=== PATIENT | female | born 1970 | race Caucasian/White ===

== ENCOUNTER 2019-12-03 17:31 | Emergency (ER) | payer OTHER, SELFPAY ==
[2013-01-11 21:01] VITALS: BMI 29.5
[2019-12-03 17:31] VITALS: BP 139/85; PULSE 84; RESP 26; TEMP 36.6; O2SAT 97; BMI 29.5
--- NOTE | 2019-12-03 18:29 | ED.DCSUM_ITS ---
History of Present Illness Chief Complaint: Shortness of Breath Informant: Patient Narrative: 49-year-old female presenting with chest pain and shortness of breath. She states she started to feel unwell last . 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 She states she is tested weekly. After she had symptoms she was told to get tested at a drive-through [facility]. She did do this and resulted positive on Saturday. She states that her initial symptoms were headache which progressed myalgias. She states she has had low-grade fevers of 101 at home. The started 3 days ago. Patient states she has a very painful cough but is not having pain otherwise. She does feel subjectively short of breath. She states he can only walk a few feet. She denies any medical problems. Past Medical History - Allergies and Home Meds Allergies/Adverse Reactions: Allergies No Known Allergies Allergy (Verified 12/03/19 17:33) Primary Care Physician: NOT,DEFINED [NON-STAFF] - Past Medical History: None Surgical History: noncontributory Lives: Spouse/ Significant Other Smoking Status: Never smoker Alcohol: None Drugs: None Review of Systems General: Reports: Chills, Fever, Malaise Eyes: Denies: Visual changes - bilaterally, Diplopia ENT: Reports: Rhinorrhea Cardiovascular: Reports: Chest pain, Heart racing Respiratory: Reports: Dyspnea, Cough, Dyspnea on exertion Gastrointestinal: Denies: Abdominal pain, Nausea Genitourinary: Denies: Dysuria, Hematuria Musculoskeletal: Reports: Myalgias. Denies: Arthralgias, Swelling Skin: Denies: Rash, Abscess Neurological: Reports: Headache. Denies: Weakness, Parasthesia Physical Exam Vital Signs/Narrative: Vital Signs Temp Pulse Resp BP Pulse Ox 12/03/19 17:31 97.9 F 84 26 H 139/85 H 97 Inital Vital Signs reviewed: Yes General: Well nourished, No Acute Distress Head: Normocephalic, Atraumatic Eyes: Perrl ENT: Nasal congestion Neck: Supple, Nontender Cardiovascular: Regular rate, Regular rhythm Respiratory: No distress, - - Basilar crackles. Negative for: Wheezing Extremities: Nontender, No edema Skin: Normal color, No rash. Negative for: Cyanosis, Diaphoresis Neurological: Alert, Oriented x3, Right side facial droop Psychological: Tearful, - - anxious Diagnostic/Tx/Re-eval Clinical Impression(s) from Imaging Studies Chest X-Ray 12/03/19 18:53 IMPRESSION: Findings suspicious for mild Covid 19 pneumonia in the lower lobes CT would be useful for further evaluation if indicated clinically Electronically Signed: Conor Galarza MD at 19:07 EDT , Service support , Laboratory Data 12/03/19 12/03/19 12/03/19 18:45 18:45 18:45 WBC 2.8 L RBC 4.19 L Hgb 12.8 Hct 38.9 MCV 92.8 MCH 30.5 MCHC 32.9 RDW Std Deviation 41.9 RDW Coeff of Mary Ann 12.4 Plt Count 172 MPV 10.5 Immature Gran % (Auto) 0.700 Neut % (Auto) 54.7 Lymph % (Auto) 36.4 Mayes % (Auto) 7.8 Eos % (Auto) 0.0 Baso % (Auto) 0.4 Absolute Neuts (auto) 1.6 L Absolute Lymphs (auto) 1.03 Nucleated RBC % 0 D-Dimer Quant (PE/DVT) 0.43 Sodium 140 Potassium 3.3 L Chloride 104 Carbon Dioxide 29.0 Anion Gap 7 BUN 7 Creatinine 0.57 Estim Creat Clear Calc 123.40 Est GFR (MDRD) Af Amer 143 Est GFR (MDRD) Non-Af 118 BUN/Creatinine Ratio 12.2 Glucose 90 Lactic Acid Calcium 8.9 Total Bilirubin 0.40 AST 61 H ALT 84 H Alkaline Phosphatase 122 H Troponin I < 0.015 Total Protein 7.6 Albumin 3.5 Globulin 4.1 Albumin/Globulin Ratio 0.9 12/03/19 18:45 WBC RBC Hgb Hct MCV MCH MCHC RDW Std Deviation RDW Coeff of Mary Ann Plt Count MPV Immature Gran % (Auto) Neut % (Auto) Lymph % (Auto) Mayes % (Auto) Eos % (Auto) Baso % (Auto) Absolute Neuts (auto) Absolute Lymphs (auto) Nucleated RBC % D-Dimer Quant (PE/DVT) Sodium Potassium Chloride Carbon Dioxide Anion Gap BUN Creatinine Estim Creat Clear Calc Est GFR (MDRD) Af Amer Est GFR (MDRD) Non-Af BUN/Creatinine Ratio Glucose Lactic Acid 0.8 Calcium Total Bilirubin AST ALT Alkaline Phosphatase Troponin I Total Protein Albumin Globulin Albumin/Globulin Ratio - Rhythm Strip Rhythm Strip: Sinus Rhythm Rate: 78 - EKG Initial EKG Interpretation: Sinus Rhythm, No Acute Injury Pattern - Medical Decision Making 49-year-old female presenting with shortness of breath and painful cough. She was diagnosed with Covid?19. Is day 7 of symptoms for her. Her vital signs are stable and she is currently afebrile. Her lungs are clear. Her heart is regular rate and rhythm. While in the room I did ambulate her on pulse ox and she did not desat. She had been able to ambulate to the commode as well without difficulty. EKG is sinus rhythm without signs of ischemia. Bone is negative. D-dimer is negative. This x-ray is suspicious for bilateral lower lobe infiltrates consistent with Covid?19. Her blood work is consistent with a viral illness. Patient counseled that I had no significant findings warranting need for admission. Her biggest concern was the painful cough. Over prescribe her Cheratussin for home. She is given return precautions. Impression: Covid?19 pneumonia ED Disposition - Plan for ED Patient: Disposition: Home or Assisted Living Instructions: ED Upper Resp Infec No Abx Tx Referrals: NOT,DEFINED [NON-STAFF] -
--- NOTE | 2019-12-03 18:31 | EKG12_ITS ---
Test Reason : DYSRHYTHMIA Blood Pressure : / mmHG Vent. Rate : 078 BPM Atrial Rate : 078 BPM P-R Int : 168 ms QRS Dur : 082 ms QT Int : 378 ms P-R-T Axes : 010 -06 010 degrees QTc Int : 430 ms Normal sinus rhythm Low voltage QRS (Limb Leads) Confirmed by STEVE GUERRERO, LUH ([id number]), digital editor SPARKLE PAGE ([id number]) on 12/07/2019 12:46:00 PM Referred By: MARIA L Confirmed By:LUH WILSON MD
--- NOTE | 2019-12-03 18:39 | ED.RN ---
unable to access muse to check for old ekgs
[2019-12-03 18:40] VITALS: O2SAT 95
--- NOTE | 2019-12-03 18:53 | RAD_ITS ---
STUDY: X-RAY CHEST REASON FOR EXAM: Female, 49 years old. POSITIVE COVID. WORSENING SOB. PT UNABLE TO TAKE IN FULL INSPIRATION WITHOUT COUGHING. TECHNIQUE: AP portable COMPARISON: None. FINDINGS: There is less than optimal inspiratory effort. There is interstitial thickening most pronounced the lower lobes with slightly increased density possibly representing atypical viral pneumonia.. There is no demonstrated pleural abnormality. Normal size heart. Normal mediastinum and katerina. Normal visualized pulmonary arteries. Normal visualized aortic arch and descending thoracic aorta. Normal visualized thoracic spine. Normal visualized ribs, clavicles, and shoulders. There is no demonstrated abnormality of the visualized soft tissue structures of the upper abdomen. RAD/Chest 1 View (Portable) IMPRESSION: Findings suspicious for mild Covid 19 pneumonia in the lower lobes CT would be useful for further evaluation if indicated clinically Electronically Signed: Conor Galarza MD at 19:07 EDT , Service support ,
[2019-12-03 19:00] LABS: Absolute Lymphocyte Count 1.03 X10^3/uL (0.83-4.51); Absolute Neutrophil Count 1.6 X10^3/uL (2.0-7.7); Basophil# 0.01 X10^3/uL; Basophil% 0.4 % (0-1); Hematocrit 38.9 % (37-47); Hemoglobin 12.8 g/dL (12.0-15.0); Lymphocyte # 1.03 X10^3/ul (4.0); Lymphocyte % 36.4 % (19-41); Mean Corp Hgb Conc 32.9 g/dL (32-36); Mean Corpuscular Hgb 30.5 pg (27.0-32.0); Mean Corpuscular Volume 92.8 fL (81-99); Mean Platelet Vol. 10.5 fl (6.2-12.0); Monocyte# 0.22 X10^3/uL; Monocyte% 7.8 % (0-10); NRBC Flagged by Analyzer 0 % (0-5); Neutrophil # 1.55 X10^3/uL (2.7-7.7); Neutrophil % 54.7 % (47-70); Platelet Count 172 K/mm3 (150-450); RBC Distribution Width CV 12.4 % (11.6-14.6); RBC Distribution Width SD 41.9 fl (35.1-43.9); Red Blood Count 4.19 M/mm3 (4.2-5.4); White Blood Count 2.8 K/mm3 (4.4-11.0)
[2019-12-03] MEDS: Acetaminophen 500 MG Tablet 1000 MG PO (19:13)
[2019-12-03 19:19] LABS: D-Dimer Quantitative (DVT/PE) 0.43 FEU/ug/m (0.27-0.49)
[2019-12-03 19:33] LABS: Lactic Acid 0.8 mmol/L (0.4-1.9)
[2019-12-03 19:37] LABS: ALB/GLOB Ratio 0.9 RATIO (0.9-2.4); AST(SGOT) 61 U/L (15-37); Alanine Aminotransfer ALT/SGPT 84 U/L (13-56); Albumin, Serum 3.5 g/dL (3.2-5.0); Alkaline Phosphatase 122 U/L (45-117); Anion Gap 7 (5-15); BUN 7 mg/dL (7-18); BUN/Creat Ratio 12.2 RATIO (10-20); Calcium,Total 8.9 mg/dL (8.5-10.1); Chloride 104 mmol/L (98-107); Creatinine, Serum 0.57 mg/dL (0.55-1.02); EST Glomerular Filtration Rate 118 mL/min (>60); Est Glom Filt Rate - Afr Amer 143 mL/min (>60); Globulin 4.1 g/dL (2.2-4.2); Glucose 90 mg/dL (74-106); Potassium 3.3 mmol/L (3.5-5.1); Protein, Total 7.6 g/dL (6.4-8.2); Sodium Level 140 mmol/L (136-145)
[2019-12-03 20:10] VITALS: BP 128/76; PULSE 80; RESP 20; TEMP 37.3; O2SAT 96
[2019-12-03 22:35] VITALS: BP 128/72; PULSE 80; RESP 16; O2SAT 96
== END 2019-12-03 22:35 | disposition home or self-care (01) ==
PROVIDERS: Emergency Provider Student in an Organized Health Care Education/Training Program
DX: U07.1 COVID-19 (principal); J12.89 Other viral pneumonia
CPT/HCPCS: 71045; 80053; 83605; 84484; 85025; 85379; 87040; 87633; 93005; 96360; 99283; J7030; A4216